=== PATIENT | female | born 1955 | race Caucasian/White ===

== ENCOUNTER 2022-06-02 20:51 | Emergency (ER) | payer MEDICARE, OTHER ==
[~2022-06-02] VITALS: Ht 165.1 cm; Wt 83.5 kg
--- NOTE | 2022-06-02 21:42 | NUR ---
BIBS FOR EVALUATION OF L GREAT TOE INFECTED WOUND X 5 DAYS. PATIENT ALERT AND ORIENTED X3, AMBULATORY BUT BROUGHT IN BY WHEELCHAIR DUE TO THE PAIN IN TOE. PATIENT IN CHAIR 01 AND WAS SEEN BY MD AT TRIAGE.
--- NOTE | 2022-06-02 22:04 | NUR ---
XRAY AT BEDSIDE
[2022-06-02 22:22] LABS: BASOPHILS # (AUTO) 0.2 K/uL (0.0-0.2); BASOPHILS % (AUTO) 1.1 % (0.0-2.0); EOSINOPHILS % (AUTO) 2.7 % (0.0-6.0); HEMATOCRIT 38 % (33-45); HEMOGLOBIN 12.6 g/dL (11.5-14.8); LYMPHOCYTES # (AUTO) 3.5 K/uL (0.8-4.8); LYMPHOCYTES % (AUTO) 22.5 % (20.0-44.0); MEAN CORPUSCULAR HGB CONC 33 g/dl (31.0-36.0); MEAN CORPUSCULAR VOLUME 85 fL (82-100); MONOCYTES # (AUTO) 0.9 K/uL (0.1-1.30); MONOCYTES % (AUTO) 5.9 % (2.0-12.0); NEUTROPHILS # (AUTO) 10.4 K/uL (1.8-8.9); NEUTROPHILS % (AUTO) 67.8 % (43.0-81.0); PLATELET COUNT (AUTO) 276 K/uL (150-450); RED BLOOD CELL COUNT(AUTO) 4.49 MIL/uL (4.0-5.2); WHITE BLOOD COUNT (AUTO) 15.4 K/uL (4.3-11.0)
[2022-06-02 22:51] LABS: CALCIUM, SERUM 8.7 mg/dL (8.5-10.1); CARBON DIOXIDE 28 mmol/L (21-32); CHLORIDE 102 mmol/L (98-107); CREATININE 0.8 mg/dL (0.6-1.3); GLUCOSE 242 mg/dL (74-106); POTASSIUM 3.8 mmol/L (3.5-5.1); SODIUM SERUM 137 mmol/L (136-145); UREA NITROGEN, BLOOD 15 mg/dL (7-18)
--- NOTE | 2022-06-02 22:53 | NUR ---
LACTIC ACID 2.1
[2022-06-02] MEDS ORDERED: IV NS 0.9% 1,000 ML IV PRN (23:30)
[2022-06-03 01:44] LABS: BILIRUBIN,DIRECT 0.1 mg/dL (0.0-0.2); BILIRUBIN,TOTAL 0.3 mg/dL (0.2-1.0)
[2022-06-03] MEDS ORDERED: CEPH500C2 PO (02:25)
[2022-06-03] MEDS ORDERED: CEPHALEXIN MONOHYDRATE 500 MG CAPSULE PO ONE ×2 (02:29→02:30)
--- NOTE | 2022-06-03 02:42 | NUR ---
Patient discharged to home in stable condition. Written and verbal after care instructions given. Patient verbalizes understanding of instruction.
[2022-06-03 02:43] VITALS: BP 140/60
== END 2022-06-03 02:44 | disposition home or self-care (01) ==
LOC: ER 20:56
DX: L97.529 Non-pressure chronic ulcer of other part of left foot with unspecified severity (principal); I10 Essential (primary) hypertension; E11.9 Type 2 diabetes mellitus without complications
CPT/HCPCS: 99284; 96360; 73630; 85025; 80048; 83605 ×2; 36415 ×2; 82247; 82248; J7030